=== PATIENT | female | born 1980 | race Caucasian/White ===

== ENCOUNTER → 2018-03-01 | Outpatient (CLI) | payer BC, MEDICAID | LOC: HPND 08:38 | PROVIDERS: ATTEND Obstetrics & Gynecology | DX: O35.2XX0 Maternal care for (suspected) hereditary disease in fetus, not applicable or unspecified (principal); Q87.1 Congenital malformation syndromes predominantly associated with short stature | CPT/HCPCS: 76811 ==

== ENCOUNTER → 2018-03-29 | Outpatient (CLI) | payer BC, MEDICAID | LOC: HPND 09:21 | PROVIDERS: ATTEND Obstetrics & Gynecology | DX: O35.2XX0 Maternal care for (suspected) hereditary disease in fetus, not applicable or unspecified (principal); O34.12 Maternal care for benign tumor of corpus uteri, second trimester; O09.522 Supervision of elderly multigravida, second trimester; O26.892 Other specified pregnancy related conditions, second trimester | CPT/HCPCS: 76816; 76825; 76827; 93325 ==

== ENCOUNTER → 2018-04-27 | Outpatient (CLI) | payer OTHER, MEDICAID | LOC: HPND 12:46 | PROVIDERS: ATTEND Obstetrics & Gynecology | DX: O09.529 Supervision of elderly multigravida, unspecified trimester (principal); O26.899 Other specified pregnancy related conditions, unspecified trimester; O34.12 Maternal care for benign tumor of corpus uteri, second trimester | CPT/HCPCS: 76816 ==

== ENCOUNTER 2018-07-04 16:01 | Observation (INO) ==
--- NOTE | 2018-07-04 16:34 | ED ---
History of Present Illness Primary Care Physician: No Primary Care Physician History of Present Illness: HPI: 37 year old at 36+5 weeks EGA with EDC of 07/27/18 confirmed with 1st trimester ultrasound. Presents to ED with preeclamptic symptoms, was found to have High BP at her OB outpatient appointment with associated ketones and proteins found in her urine. She was sent to the ED for further evaluation. She states that she has had associated headaches over the past couple days with photophobia. She denies any nausea, vomiting, vision changes, dizziness, or leg swelling. She states that her chronic lymphedema has gotten better over the past couple of days. She confirms contractions every 4 minutes since this morning. Denies any SROM of clear fluid. Denies any vaginal bleeding. Patient has felt movements. care: Seen by Dr. Vital Patient has had an uncomplicated course. Scheduled for on the . No UTIs. Patient is compliant. 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 3 uterine fibroids. PMH: Lymphedema, AMA, Mitral Valve Prolapse. FHx: Denies any defects, CF, twins. Allergies: NKDA Meds: vitamins. Tylenol Social history: No tobacco, alcohol or drug abuse, , no domestic violence. ROS: Denies any CP, SOB, Ab Pain, Problems with Urination or Defecation. Review of Systems All other systems reviewed negative except as stated in HPI PMFSH - Travel History Recent Travel in the [facility] Within the Last 8 Weeks: No Recent Travel Out of the Country Within the Last 8 Weeks: No Medications and Allergies Allergies Allergy/AdvReac Type Severity Reaction Status Date / Time No Known Allergies Allergy Unverified 07/04/18 16:25 Active Medications: Active Medications Sodium Chloride (Ns Flush) 2 ml IV.FLUSH BID HOMAR Sodium Chloride (Ns Flush) 2 ml IV.FLUSH PRN PRN PRN Reason: FLUSH AFTER USING IV ACCESS Exam Vital signs: Intake & Output 07/03/18 07/04/18 07/04/18 18:59 06:59 18:59 Weight 65.317 kg Narrative: GENERAL: Well-nourished, well-developed patient. SKIN: Warm and dry. HEAD: Normocephalic and atraumatic. EYES: No scleral icterus. No injection or drainage. ENT: No nasal drainage noted. Mucous membranes pink. Airway patent. NECK: Supple, trachea midline. No JVD. CARDIOVASCULAR: Regular rate and rhythm, Loud systolic click heard over the left sternal border and the apex. RESPIRATORY: Breath sounds equal bilaterally. No accessory muscle use. ABDOMEN/GI: Abdomen soft, non-tender, bowel sounds present, no rebound, no guarding Gravid to 36 weeks size FHT's: Category: 1 Baseline: 130 bpm Reactive: + Variability: moderate Decels: no EXTREMITIES: Lymphedema. Wrapped with sandy bandages b/l. NEUROLOGICAL: Awake and alert. Normal speech. Results - Labs CBC & Chem 7: 07/04/18 17:00 07/04/18 17:00 Assessment and Plan - Diagnosis (1) Elevated blood pressure affecting in third trimester, antepartum Code(s): O16.3 - Unspecified maternal hypertension, third trimester Status: Acute Plan: 36 F with scheduled on Jul 21 presents to ED with elevated BPs , ketones and protein in urine and associated headache. -Repeat BPs: 143/84, 153/86 -Monitor BPs every 20 minutes -Urine Analysis ordered. -Tylenol for headache -IV fluids, Keep Patient NPO -EFM/Hartman -CBC/CMP ordered. The exam, history, and the medical decision-making described in the above note were completed with the assistance of the resident physician. I reviewed and agree with the findings presented. I attest that I had a [id number] encounter with the patient on the same day, and personally performed and documented my assessment and findings in the medical record. Blood pressure readings have remained mild range during triage observation. CBC/ CMP are wnl. In light of the patient's new onset headache I will plan to admit for observation. (2) Head ache Code(s): R51 - Headache Status: Acute Plan: - With associated photophobia - Tylenol added for pain. - Continue to monitor for blurry vision, dizziness. (3) Urine ketones Code(s): R82.4 - Acetonuria Status: Acute Plan: Urine Analysis Ordered (4) AMA (advanced maternal age) primigravida 35+ Code(s): O09.519 - Supervision of elderly primigravida, unspecified trimester Status: Acute Discharge Plan - Physicians Team Primary Care Provider: Primary Care Physici,No Attending Provider: Sammy Vital - Rxs /Orders / Referrals /Forms Referrals: Primary Care Joann Mccracken [Primary Care Provider] - See Instructions - Discharge Instructions
[2018-07-04] MEDS ORDERED: Acetaminophen 325 MG Tablet PO ONE (17:24)
[2018-07-04] MEDS ORDERED: Sod Chloride 0.9% Inj 1,000 ML IV.CONT SCH (17:30)
[2018-07-04 17:32] LABS: Hematocrit 34.4 % (35.0-46.0); Hemoglobin 11.7 gm/dL (11.6-15.3); Mean Corpuscular HGB Conc 34.2 % (32.0-36.0); Mean Corpuscular Hemoglobin 26.6 pg (27.0-34.0); Mean Corpuscular Volume 77.9 fL (80.0-100.0); Mean Platelet Volume 10.2 fL (7.0-11.0); Platelet Count 197 th/mm3 (150-450); Red Blood Count 4.41 mil/mm3 (4.00-5.30); Red Cell Distribution Width 14.4 % (11.6-17.2); White Blood Count 9.5 th/mm3 (4.0-11.0)
[2018-07-04 18:01] LABS: Albumin 2.5 g/dL (3.4-5.0); Anion Gap 10 meq/L (5-15); Aspartate Aminotransferase 16 U/L (15-37); Blood Urea Nitrogen 18 mg/dL (7-18); Calcium 8.6 mg/dL (8.5-10.1); Carbon Dioxide 21.8 meq/L (21.0-32.0); Chloride 107 meq/L (98-107); Glomerular Filtration Rate 69 mL/min (>89); Glucose,Random 79 mg/dL (74-106); Potassium 4.2 meq/L (3.5-5.1); Sodium 139 meq/L (136-145)
[2018-07-04 18:02] LABS: Alanine Aminotransferase 15 U/L (10-53)
[2018-07-04 18:04] LABS: Alkaline Phosphatase 110 U/L (45-117); Total Protein 6.7 g/dL (6.4-8.2)
[2018-07-04 18:22] LABS: Bacteria,Urine Many /hpf; Bilirubin,Urine Negative (Negative); Clarity,Urine Cloudy (Clear); Color,Urine Yellow (Yellw/Straw); Glucose,Urine (UA) Negative (Negative); Hyaline Casts,Urine 2 /lpf (0-3); Leukocyte Esterase,Urine Trace (Negative); Mucus,Urine Few /lpf (Occasional); Nitrite,Urine Negative (Negative); Specific Gravity,Urine 1.026 (1.002-1.035); Squamous Epithelial Cell,Urine 4 /hpf (0-5)
[2018-07-04] MEDS ORDERED: Oxytocin 30 Units/500ml Premix 30 UNITS/500 ML BAG IV.SIG ONE (20:25)
[2018-07-04] MEDS ORDERED: Naloxone Inj 0.4 MG/ML Vial IV.PUSH PRN (20:25)
[2018-07-04] MEDS ORDERED: fentaNYL Citrate Inj 100 MCG/2 ML Ampul IV.PUSH PRN ×2 (20:25)
[2018-07-04] MEDS ORDERED: Sodium Chlor 0.9% Inj 500 ML IV.SIG PRN (20:25)
[2018-07-04] MEDS ORDERED: Sod Chloride 0.9% Inj 1,000 ML IV.CONT PRN (20:25)
[2018-07-04] MEDS ORDERED: Citric Acid/Sodium Citrate Liq 30 ML UDC PO SCH (20:30)
[2018-07-04] MEDS ORDERED: Acetaminophen 325 MG Tablet PO PRN (20:54)
[2018-07-04] MEDS ORDERED: Famotidine 20 MG Tablet PO SCH (21:00)
[2018-07-05 00:14] LABS: Amphetamine Urine With Conf Neg (Neg); Benzodiazepine Urine With Conf Neg (Neg)
--- NOTE | 2018-07-05 09:24 | P.PN ---
Subjective Interval history: Doing well, no agrawal, scotoma or RUQ pain. Feeling well but did not sleep Ready to have baby wore the PCDs last night the lymphedema is getting worse. Physical Exam Vital signs: Vital Signs 07/04/18 16:31 07/04/18 17:45 07/04/18 18:15 Temperature 98.5 F Pulse Rate 90 78 84 Respiratory Rate 18 Blood Pressure 143/84 H 140/80 143/82 H 07/04/18 18:46 07/04/18 19:00 07/04/18 20:00 Temperature Pulse Rate 78 76 73 Respiratory Rate Blood Pressure 139/74 139/80 103/88 07/04/18 20:15 07/04/18 21:03 07/04/18 22:12 Temperature 98.0 F Pulse Rate 100 H 75 Respiratory Rate 15 15 14 Blood Pressure 117/75 123/71 07/04/18 23:00 07/05/18 00:04 07/05/18 04:25 Temperature 97.7 F 97.6 F Pulse Rate 73 78 67 Respiratory Rate 14 14 Blood Pressure 117/66 135/75 122/69 07/05/18 08:01 Temperature 97.8 F Pulse Rate 71 Respiratory Rate 15 Blood Pressure 127/79 Intake & Output 07/04/18 07/05/18 07/05/18 18:59 06:59 18:59 Weight 65.317 kg - Routine HEENT Exam Head: Present: normocephalic, atraumatic - Routine Neck Exam Present: supple - Routine Respiratory Exam Present: CTA bilaterally - Routine Cardiovascular Exam Present: RRR Results - Labs CBC & Chem 7: 07/04/18 17:00 07/04/18 17:00 Laboratory Results - last 24 hr 07/04/18 07/04/18 07/04/18 17:00 17:00 17:00 WBC 9.5 RBC 4.41 Hgb 11.7 Hct 34.4 L MCV 77.9 L MCH 26.6 L MCHC 34.2 RDW 14.4 Plt Count 197 MPV 10.2 Sodium 139 Potassium 4.2 Chloride 107 Carbon Dioxide 21.8 Anion Gap 10 BUN 18 Creatinine 0.91 Estimated GFR 69 L Random Glucose 79 Calcium 8.6 Total Bilirubin 0.2 AST 16 ALT 15 Alkaline Phosphatase 110 Total Protein 6.7 Albumin 2.5 L Urine Color Yellow Urine Clarity Cloudy H Urine pH 5.0 Ur Specific [place] 1.026 Urine Protein 100 H Urine Glucose (UA) Negative Urine Ketones Negative Urine Occult Blood Negative Urine Nitrate Negative Urine Bilirubin Negative Urine Urobilinogen 2.0 H Ur Leukocyte Esterase Trace H Urine RBC 2 Urine WBC 10 H Ur Squamous Epith Cells 4 Urine Bacteria Many H Hyaline Casts 2 Urine Mucus Few H Micro UA Comment Culture indicated Ur Microscopic Review Not Reportable Urine Culture Comments Culture indicated Urine Opiates Screen Ur Barbiturates Screen Ur Amphetamine Screen U Benzodiazepines Scrn Urine Cocaine Screen U Cannabinoids Screen Blood Type 07/04/18 07/05/18 17:00 08:20 WBC RBC Hgb Hct MCV MCH MCHC RDW Plt Count MPV Sodium Potassium Chloride Carbon Dioxide Anion Gap BUN Creatinine Estimated GFR Random Glucose Calcium Total Bilirubin AST ALT Alkaline Phosphatase Total Protein Albumin Urine Color Urine Clarity Urine pH Ur Specific [place] Urine Protein Urine Glucose (UA) Urine Ketones Urine Occult Blood Urine Nitrate Urine Bilirubin Urine Urobilinogen Ur Leukocyte Esterase Urine RBC Urine WBC Ur Squamous Epith Cells Urine Bacteria Hyaline Casts Urine Mucus Micro UA Comment Ur Microscopic Review Urine Culture Comments Urine Opiates Screen Neg Ur Barbiturates Screen Neg Ur Amphetamine Screen Neg U Benzodiazepines Scrn Neg Urine Cocaine Screen Neg U Cannabinoids Screen Neg Blood Type O Negative Assessment and Plan - Assessment (1) Pre-eclampsia affecting childbirth Code(s): O14.94 - Unspecified pre-eclampsia, complicating childbirth Status: Acute - Plan IUP at 36/6 Pre eclampsia will proceed with a primary c/s tomorrow at 37 weeks Lymphedema will try to restrict the fluids at this time.
== END 2018-07-05 10:31 | disposition home or self-care (01) ==
LOC: H2E 16:01 → HOBED 16:01 → H2E 19:14
PROVIDERS: ADMIT Obstetrics & Gynecology; ATTEND Obstetrics & Gynecology
DX: O09.513 Supervision of elderly primigravida, third trimester; O34.13 Maternal care for benign tumor of corpus uteri, third trimester; O26.893 Other specified pregnancy related conditions, third trimester; D25.9 Leiomyoma of uterus, unspecified; O99.413 Diseases of the circulatory system complicating pregnancy, third trimester; O14.93 Unspecified pre-eclampsia, third trimester; Z3A.36 36 weeks gestation of pregnancy; I89.0 Lymphedema, not elsewhere classified; R82.4 Acetonuria

== ENCOUNTER 2018-07-06 09:32 | Inpatient (IN) ==
--- NOTE | 2018-07-06 10:50 | P.HPOB ---
History of Present Illness Primary Care Physician: MD Dr. Amanuel Arriola, VAT PACKER History of Present Illness: A 37-year-old at 36 weeks 6 days, dated by first trimester ultrasound, presents for scheduled . Patient presented to the ED yesterday with high blood pressure, headache, blurry vision, and was found to have proteinuria. 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 This includes certification that hospital inpatient services are reasonable and necessary and in the case of services not specified as inpatient-only under 42 CFR 419.22(n), that they are appropriately provided as inpatient services in accordance to with the 2-midnight benchmark under 43 CFR 412.3(e) Estimated Total Length of Stay (Days): 2 Plans for Post Hospital Care: Home Review of Systems All other systems reviewed negative except as stated in HPI PMFSH - History History Provided By: Patient, Family Member - Medical / Surgical Hx Neg / Unobtainable Surgical History: No Previous Surgery - Social History I have reviewed the patient's Social History: Yes - Tobacco History Second Hand Smoke Exposure: No Tobacco Use In Past 30 Days: No Smoking Status: Never smoker - Alcohol History How Often Do You Have a Drink Containing Alcohol: Never - Substance Use History Substance History: No History of Abuse - Travel History History of Recent Travel: No Recent Travel in the [place] Within the Last 8 Weeks: No Recent Travel Out of the Country Within the Last 8 Weeks: No Medications and Allergies Active Medications: Active Medications Citric Acid/Sodium Citrate (Sodium Citrate/Citric Acid Liq) 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 Stop: 07/10/18 10:59 Cefazolin Sodium 2,000 mg/ (Sodium Chloride) 100 mls @ 200 mls/hr IV.SIG BUILDING MAINTENANCE CUSTODIAN HOMAR Stop: 07/10/18 10:59 Lactated Ringer's (Lr 1000 Ml Inj) 1,000 mls @ 2,000 mls/hr IV.SIG .Q30M ONE Stop: 07/06/18 11:15 Lactated Ringer's (Lr 1000 Ml Inj) 1,000 mls @ 150 mls/hr IV.CONT .Q6H40M HOMAR Allergies Allergy/AdvReac Type Severity Reaction Status Date / Time No Known Allergies Allergy Verified 07/06/18 10:20 Home Medications Medication Instructions Recorded Confirmed Type [id number] fumarate-FA 1 tab PO DAILY 07/04/18 07/06/18 History [] Exam Vital signs: Vital Signs 07/06/18 10:07 Temperature 98.0 F Pulse Rate 88 Blood Pressure 134/91 H Intake & Output 07/05/18 07/06/18 07/06/18 18:59 06:59 18:59 Weight 65.317 kg Other: Weight On Admission 65.317 kg Narrative: GENERAL: Well-nourished, well-developed patient. SKIN: Warm and dry. HEAD: Normocephalic and atraumatic. EYES: No scleral icterus. No injection or drainage. ENT: No nasal drainage noted. Mucous membranes pink. Airway patent. NECK: Supple, trachea midline. No JVD. CARDIOVASCULAR: Regular rate and rhythm without murmurs, gallops, or rubs. RESPIRATORY: Breath sounds equal bilaterally. No accessory muscle use. ABDOMEN/GI: Abdomen soft, non-tender, bowel sounds present, no rebound, no guarding Gravid to 37 weeks size Fundal Height: 37 GENITOURINARY: External Genitalia: intact and normal in appearance FHT's: Category 1 tracing, no decelerations irregular uterine contractibility, no regular contractions EXTREMITIES: severe 3+ non-pitting edema of right leg, severe 2+ non-pitting edema of left leg, weeping of both legs present BACK: Nontender without obvious deformity. No CVA tenderness. NEUROLOGICAL: Awake and alert. Motor and sensory grossly within normal limits. Five out of 5 muscle strength in all muscle groups. Normal speech. Results - Labs CBC & Chem 7: 07/06/18 10:28 Caprini VTE Risk Assessment Caprini VTE Risk Assessment: No/Low Risk (score <= 1) Caprini Risk Assessment Model: Point Value = 1 Point Value = 2 Point Value = 3 Point Value = 5 Age 41-60 Minor surgery BMI > 25 kg/m2 Swollen legs Varicose veins or History of unexplained or recurrent spontaneous Oral contraceptives or hormone replacement Sepsis (< 1 month) Serious lung disease, including pneumonia (< 1 month) Abnormal pulmonary function Acute myocardial infarction Congestive heart failure (< 1 month) History of inflammatory bowel disease Medical patient at bed rest Age 61-74 Arthroscopic surgery Major open surgery (> 45 min) Laparoscopic surgery (> 45 min) Malignancy Confined to bed (> 72 hours) Immobilizing plaster cast Central venous access Age >= 75 History of VTE Family history of VTE Factor V Leiden Prothrombin [id number] Lupus anticoagulant Anticardiolipin antibodies Elevated serum homocysteine Heparin-induced thrombocytopenia Other congenital or acquired thrombophilia Stroke (< 1 month) Elective arthroplasty Hip, pelvis, or leg fracture Acute spinal cord injury (< 1 month) Prophylaxis Regimen: Total Risk Factor Score Risk Level Prophylaxis Regimen 0-1 Low Early ambulation 2 Moderate Order ONE of the following: *Sequential Compression Device (SCD) *Heparin 5000 units SQ BID 3-4 Higher Order ONE of the following medications: *Heparin 5000 units SQ TID *Enoxaparin/Lovenox 40 mg SQ daily (WT < 150 kg, CrCl > 30 mL/min) *Enoxaparin/Lovenox 30 mg SQ daily (WT < 150 kg, CrCl > 10-29 mL/min) *Enoxaparin/Lovenox 30 mg SQ BID (WT < 150 kg, CrCl > 30 mL/min) AND/OR *Sequential Compression Device (SCD) 5 or more Highest Order ONE of the following medications: *Heparin 5000 units SQ TID (Preferred with Epidurals) *Enoxaparin/Lovenox 40 mg SQ daily (WT < 150 kg, CrCl > 30 mL/min) *Enoxaparin/Lovenox 30 mg SQ daily (WT < 150 kg, CrCl > 10-29 mL/min) *Enoxaparin/Lovenox 30 mg SQ BID (WT < 150 kg, CrCl > 30 mL/min) AND *Sequential Compression Device (SCD) Assessment and Plan - Plan A 37-year-old at 36 weeks 6 days, dated by first trimester ultrasound, presents for scheduled . Scheduled c/s at 36.6wks for pre-eclampsia, AGA, lymphedema. - Admit to L&D - Pre-op C/S orders in - MD Aware - NPO - H&H: 11.8/36.1 - f/u CMP, UA, UDS - Ancef 2g Pre-eclampsia - BP 134-153/ 79-91 - f/u UA - Cont to monitor BPs and control PRN Lymphedema - Cont to monitor I&Os - Caution with IVF Case discussed w/ , VAT PACKER
[2018-07-06] MEDS ORDERED: ceFAZolin Inj 2,000 MG in Sodium Chlor 0.9% Inj 80 ML IV.SIG SCH (11:00)
[2018-07-06] MEDS ORDERED: Citric Acid/Sodium Citrate Liq 30 ML UDC PO SCH (11:00)
[2018-07-06 11:04] LABS: Baso # (Auto) 0.1 th/mm3 (0.0-0.2); Baso % (Auto) 1.6 % (0.0-2.0); Eos # (Auto) 0.1 th/mm3 (0.0-0.4); Eos % (Auto) 0.9 % (0.0-4.0); Hematocrit 36.1 % (35.0-46.0); Hemoglobin 11.8 gm/dL (11.6-15.3); Lymph # (Auto) 1.8 th/mm3 (1.0-4.8); Lymph % (Auto) 20.6 % (9.0-44.0); Mean Corpuscular HGB Conc 32.6 % (32.0-36.0); Mean Corpuscular Hemoglobin 26.1 pg (27.0-34.0); Mean Platelet Volume 10.5 fL (7.0-11.0); Mono # (Auto) 0.8 th/mm3 (0.0-0.9); Mono % (Auto) 9.4 % (0.0-8.0); Neut # (Auto) 5.9 th/mm3 (1.8-7.7); Neut % (Auto) 67.5 % (16.0-70.0); Platelet Count 212 th/mm3 (150-450); Red Blood Count 4.51 mil/mm3 (4.00-5.30); Red Cell Distribution Width 14.2 % (11.6-17.2); White Blood Count 8.7 th/mm3 (4.0-11.0)
[2018-07-06] MEDS ORDERED: Citric Acid/Sodium Citrate Liq 30 ML UDC ONE ×3 (11:25→12:18)
[2018-07-06] MEDS ORDERED: Morphine Sulfate PF Inj 5 MG/10 ML Ampul ONE (11:31)
[2018-07-06 11:41] LABS: Alanine Aminotransferase 17 U/L (10-53); Albumin 2.7 g/dL (3.4-5.0); Alkaline Phosphatase 114 U/L (45-117); Anion Gap 12 meq/L (5-15); Aspartate Aminotransferase 35 U/L (15-37); Blood Urea Nitrogen 18 mg/dL (7-18); Calcium 8.6 mg/dL (8.5-10.1); Carbon Dioxide 20.1 meq/L (21.0-32.0); Chloride 105 meq/L (98-107); Glomerular Filtration Rate 61 mL/min (>89); Glucose,Random 64 mg/dL (74-106); Sodium 137 meq/L (136-145); Total Protein 7.1 g/dL (6.4-8.2)
[2018-07-06 11:43] LABS: Potassium 5.1 meq/L (3.5-5.1)
[2018-07-06 11:48] LABS: Amphetamine Screen,Urine Neg (Neg); Barbiturate Screen,Urine Neg (Neg); Cannabinoid Screen,Urine Neg (Neg); Cocaine Screen,Urine Neg (Neg)
[2018-07-06 11:50] LABS: Bacteria,Urine Occasional /hpf; Bilirubin,Urine Negative (Negative); Clarity,Urine Cloudy (Clear); Color,Urine Amber (Yellw/Straw); Glucose,Urine (UA) Negative (Negative); Leukocyte Esterase,Urine Negative (Negative); Mucus,Urine Few /lpf (Occasional); Nitrite,Urine Negative (Negative); Specific Gravity,Urine 1.029 (1.002-1.035); Squamous Epithelial Cell,Urine 3 /hpf (0-5); Transitional Epi Cells,Urine <1 /hpf
[2018-07-06 11:57] LABS: Opiate Screen,Urine Neg (Neg)
[2018-07-06] MEDS ORDERED: fentaNYL Citrate Inj 250 MCG/5 ML Ampul ONE (12:54)
[2018-07-06] MEDS ORDERED: fentaNYL Citrate Inj 100 MCG/2 ML Ampul ONE (13:16)
[2018-07-06] MEDS ORDERED: Ketorolac Inj 30 MG/ML (IVP) Vial IV.PUSH ONE (13:30)
[2018-07-06] MEDS ORDERED: Oxytocin 30 Units/500ml Premix 30 UNITS/500 ML BAG IV.SIG ONE (13:49)
[2018-07-06] MEDS ORDERED: Oxytocin 30 Units/500ml Premix 30 UNITS/500 ML BAG ONE (15:26)
[2018-07-06] MEDS ORDERED: Naloxone Inj 0.4 MG/ML Vial IV.PUSH PRN (15:40)
--- NOTE | 2018-07-06 15:55 | P.OBDELI ---
Procedure Note Performed by: Madiha Shane MD, R2 Dr. Vital Procedure: Primary Low Transverse Section Indication for Delivery: Maternal medical problems, Other (pre-eclamspia, AGA, acute on chronic lymphedema) Informed Consent Obtained: For anesthesia, For procedure Confirmed Correct: Patient, Procedure, Site, Time-out taken Anesthesia: Spinal Medication Prior to Procedure: As documented in eMAR Monitoring During Procedure: Blood pressure monitoring, assortment planner, Pulse oximetry Urinary Catheter: Inserted using sterile technique Sterile Preparation: With 2% chlorexidine (Hibiclens) Position: Supine with wedge to left side - Operative Features Skin Incision: Pfannenstiel Uterine Incision: Low transverse w/knife / blunt ext Membranes Ruptured: Artificially, Appearance of fluid (clear) Presentation: Occiput anterior Status of Infant: Viable, Cord blood, Umbilical cord, Nursery present Placenta Delivered: Intact Estimated blood loss (mL): 600 Procedure Tolerated: Well Maternal Condition: Stable Baby Complications: Other (vacuum-assisted delivery) Baby Condition: Stable - Infant Infant: Male ( 9/9, weight 5lb7oz)
[2018-07-06] MEDS ORDERED: Oxytocin 30 Units/500ml Premix 30 UNITS/500 ML BAG IV.SIG PRN (18:49)
[2018-07-07 07:42] LABS: Baso % (Auto) 0.2 % (0.0-2.0); Hematocrit 26.3 % (35.0-46.0); Hemoglobin 8.5 gm/dL (11.6-15.3); Lymph # (Auto) 1.5 th/mm3 (1.0-4.8); Lymph % (Auto) 11.3 % (9.0-44.0); Mean Corpuscular HGB Conc 32.5 % (32.0-36.0); Mean Corpuscular Hemoglobin 25.9 pg (27.0-34.0); Mean Corpuscular Volume 79.9 fL (80.0-100.0); Mean Platelet Volume 10.1 fL (7.0-11.0); Mono # (Auto) 1.2 th/mm3 (0.0-0.9); Neut # (Auto) 10.6 th/mm3 (1.8-7.7); Neut % (Auto) 79.5 % (16.0-70.0); Platelet Count 177 th/mm3 (150-450); Red Blood Count 3.29 mil/mm3 (4.00-5.30); Red Cell Distribution Width 14.1 % (11.6-17.2); White Blood Count 13.4 th/mm3 (4.0-11.0)
[2018-07-07] MEDS: Senna/Docusate Sodium 8.6/50 MG Tablet PO PRN (09:02)
--- NOTE | 2018-07-07 11:37 | P.PNOB ---
Subjective Post op day: 1 Objective Vital Signs/I&O: Vital Signs 07/06/18 11:30 07/06/18 14:00 07/06/18 14:15 Temperature Pulse Rate 94 H 91 H Respiratory Rate 18 17 18 Blood Pressure 124/83 07/06/18 14:29 07/06/18 14:30 07/06/18 14:45 Temperature 97.4 F L Pulse Rate 77 74 Respiratory Rate 20 18 Blood Pressure 134/65 133/79 07/06/18 14:59 07/06/18 15:00 07/06/18 15:14 Temperature Pulse Rate 68 78 Respiratory Rate 19 18 Blood Pressure 127/82 07/06/18 15:15 07/06/18 15:51 07/06/18 16:55 Temperature 97.5 F L 97.5 F L 97.7 F Pulse Rate 66 Respiratory Rate 16 16 Blood Pressure 124/82 07/06/18 18:55 07/06/18 20:00 07/06/18 21:34 Temperature 97.5 F L 98.1 F Pulse Rate 69 67 Respiratory Rate 16 18 18 Blood Pressure 144/85 H 140/77 07/06/18 23:47 07/07/18 01:25 07/07/18 03:55 Temperature 98.1 F 98.0 F Pulse Rate 72 86 Respiratory Rate 18 18 18 Blood Pressure 135/87 108/69 07/07/18 05:00 07/07/18 07:55 Temperature 97.6 F Pulse Rate 91 H Respiratory Rate 18 18 Blood Pressure 107/61 Intake & Output 07/06/18 07/07/18 07/07/18 18:59 06:59 18:59 Intake Total 100 / 100 Balance 100 / 100 Weight 65.317 kg Intake: IV 100 / 100 Ancef Inj 1,000 MG In NS Inj 100 / 100 100 ML @ 200 mls/hr IV.SIG Q8H [facility] Rx#:[id number] Other: Weight On Admission 65.317 kg Result Diagrams: 07/07/18 06:57 07/06/18 10:28 Objective Remarks: GENERAL: Well-nourished, well-developed patient. CARDIOVASCULAR: Regular rate and rhythm without murmurs, gallops, or rubs. RESPIRATORY: Breath sounds equal bilaterally. No accessory muscle use. ABDOMEN/GI: Abdomen soft, non-tender, bowel sounds present. Incision: dressing, Clean, dry and intact. Fundus: Firm, non-tender at umbilicus. GENITOURINARY: Light to moderate bleeding. EXTREMITIES: No cyanosis, non-tender, without signs of DVT, +3 pitting edema to bilateral lower extremities Medications and IVs: Active Medications Citric Acid/Sodium Citrate (Sodium Citrate/Citric Acid Liq) 30 ml PO AUTOMOBILE SERVICE STATION MECHANIC [facility] Stop: 07/10/18 10:59 Diphenhydramine HCl (Benadryl Inj) 25 mg IV.PUSH Q6H PRN PRN Reason: MILD TO MODERATE ITCHING Stop: 07/07/18 15:39 Diphenhydramine HCl (Benadryl) 50 mg PO Q6H PRN PRN Reason: MILD TO MODERATE ITCHING Stop: 07/07/18 15:39 Diphtheria/Pertussis/Tetanus Vacc (Boostrix Vaccine Inj) 0.5 ml IM .ONCE ONE Stop: 07/07/18 16:01 Cefazolin Sodium 2,000 mg/ (Sodium Chloride) 100 mls @ 200 mls/hr IV.SIG AUTOMOBILE SERVICE STATION MECHANIC [facility] Stop: 07/10/18 10:59 Last Admin: 07/06/18 12:30 Dose: 200 mls/hr Lactated Ringer's (Lr 1000 Ml Inj) 1,000 mls @ 150 mls/hr IV.CONT .Q6H40M [facility] Last Admin: 07/07/18 10:22 Dose: Not Given Lactated Ringer's (Lr 1000 Ml Inj) 1,000 mls @ 100 mls/hr IV.CONT .Q10H [facility] Stop: 07/07/18 14:48 Last Admin: 07/07/18 10:22 Dose: Not Given Oxytocin (Pitocin 30 Units/Ns 500 Ml Premix) 30 units in 500 mls @ 100 mls/hr IV.SIG UNSCH PRN PRN Reason: Heavy bleeding Ibuprofen (Motrin) 800 mg PO Q8H PRN PRN Reason: cramping Last Admin: 07/07/18 09:02 Dose: 800 mg Ketorolac Tromethamine (Toradol Inj) 30 mg IM Q6H PRN PRN Reason: SEE LABEL COMMENTS Measles/Mumps/Rubella Vaccine Live (M-M-R Ii Vaccine Inj) 0.5 ml SQ .ONCE ONE Stop: 07/07/18 16:01 Miscellaneous Information ([facility] Nursing Information) 1 each OTHER UNSCH PRN PRN Reason: SEE LABEL COMMENTS Stop: 07/07/18 15:39 Miscellaneous Information ([facility] Nursing Information) 1 each OTHER UNSCH PRN PRN Reason: SEE LABEL COMMENTS Stop: 07/07/18 15:39 Naloxone HCl (Narcan Inj) 0.4 mg IV.PUSH UNSCH PRN PRN Reason: SEE LABEL COMMENTS Stop: 07/07/18 15:39 Oxycodone/Acetaminophen (Percocet 5/325 Mg) 1 tab PO Q4H PRN PRN Reason: PAIN SCALE 3 TO 5 Last Admin: 07/07/18 05:02 Dose: 1 tab Oxycodone/Acetaminophen (Percocet 5/325 Mg) 2 tab PO Q4H PRN PRN Reason: PAIN SCALE 6 TO 10 Last Admin: 07/07/18 09:02 Dose: 2 tab Senna/Docusate Sodium (Vangie-Colace) 2 tab PO Q12H PRN PRN Reason: CONSTIPATION Last Admin: 07/07/18 09:02 Dose: 2 tab Sodium Chloride (Ns Flush) 2 ml IV.FLUSH BID HOMAR Last Admin: 07/07/18 10:22 Dose: Not Given Sodium Chloride (Ns Flush) 2 ml IV.FLUSH PRN PRN PRN Reason: FLUSH AFTER USING IV ACCESS Assessment and Plan - Diagnosis (1) S/P primary low transverse Code(s): Z98.891 - History of uterine scar from previous surgery Status: Acute Plan: routine post op care (2) Lymph edema Code(s): I89.0 - Lymphedema, not elsewhere classified Status: Acute Plan: sequential pneumatic pump ambulation pt as compression stockings (3) Anemia Code(s): D64.9 - Anemia, unspecified Status: Acute Plan: monitor as outpatient and treat with oral iron - Plan A 37-year-old at 36 weeks 6/7 POD #1 primary and tubal Pt doing well pain well managed with oral pain medication pt to ambulate and shower today routine post op care Pre-eclampsia BP WNL LFT normal - Cont to monitor BPs and control PRN Lymphedema encourage use of sequential pneumatic stockings pt has her own compression wraps ambulation Anemia will treat with iron PP Discharge Planning: consider dc in 1-2 days
[2018-07-07] MEDS ORDERED: Diphtheria/Tetanus/Pertussis Vaccine Inj 0.5 ML Syringe IM ONE (16:00)
[2018-07-07] MEDS ORDERED: Measles/Mumps/Rubella Vaccine Inj 0.5 ML Vial SQ ONE (16:00)
--- NOTE | 2018-07-08 06:57 | P.PNOB ---
Subjective Post op day: 2 Interval history: Doing well overall, pain well controlled, minimal ambulation, feeling vaginal bleeding less than menses, she is feeling tired, denies any cough congestion or chest pain. He has not eaten much, decreased appetite, tolerating crackers and fluids without emesis. Positive flatus. Objective Vital Signs/I&O: Vital Signs 07/07/18 07:55 07/07/18 11:28 07/07/18 20:00 Temperature 97.6 F 97.6 F 98.1 F Pulse Rate 91 H 89 93 H Respiratory Rate 18 20 18 Blood Pressure 107/61 141/75 H 127/66 Intake & Output 07/07/18 07/07/18 07/08/18 06:59 18:59 06:59 Intake Total 100 / 100 Balance 100 / 100 Intake: IV 100 / 100 Ancef Inj 1,000 MG In NS Inj 100 / 100 100 ML @ 200 mls/hr IV.SIG Q8H [facility] Rx#:[id number] Result Diagrams: 07/07/18 06:57 07/06/18 10:28 Objective Remarks: GENERAL: Well-nourished, well-developed patient. CARDIOVASCULAR: Regular rate and rhythm without murmurs, gallops, or rubs. RESPIRATORY: Breath sounds equal bilaterally. No accessory muscle use. ABDOMEN/GI: Abdomen soft, non-tender, bowel sounds present. Incision: Clean, dry and intact. Fundus: Firm, non-tender at umbilicus. GENITOURINARY: Light to moderate bleeding. EXTREMITIES: No cyanosis or edema, non-tender, without signs of DVT. Medications and IVs: Active Medications Citric Acid/Sodium Citrate (Sodium Citrate/Citric Acid Liq) 30 ml PO [employer] [facility] Stop: 07/10/18 10:59 Cefazolin Sodium 2,000 mg/ (Sodium Chloride) 100 mls @ 200 mls/hr IV.SIG [employer] [facility] Stop: 07/10/18 10:59 Last Admin: 07/06/18 12:30 Dose: 200 mls/hr Lactated Ringer's (Lr 1000 Ml Inj) 1,000 mls @ 150 mls/hr IV.CONT .Q6H40M [facility] Last Admin: 07/07/18 10:22 Dose: Not Given Oxytocin (Pitocin 30 Units/Ns 500 Ml Premix) 30 units in 500 mls @ 100 mls/hr IV.SIG UNSCH PRN PRN Reason: Heavy bleeding Ibuprofen (Motrin) 800 mg PO Q8H PRN PRN Reason: cramping Last Admin: 07/08/18 02:08 Dose: 800 mg Ketorolac Tromethamine (Toradol Inj) 30 mg IM Q6H PRN PRN Reason: SEE LABEL COMMENTS Oxycodone/Acetaminophen (Percocet 5/325 Mg) 1 tab PO Q4H PRN PRN Reason: PAIN SCALE 3 TO 5 Last Admin: 07/07/18 05:02 Dose: 1 tab Oxycodone/Acetaminophen (Percocet 5/325 Mg) 2 tab PO Q4H PRN PRN Reason: PAIN SCALE 6 TO 10 Last Admin: 07/08/18 02:07 Dose: 2 tab Senna/Docusate Sodium (Vangie-Colace) 2 tab PO Q12H PRN PRN Reason: CONSTIPATION Last Admin: 07/07/18 09:02 Dose: 2 tab Sodium Chloride (Ns Flush) 2 ml IV.FLUSH BID [facility] Last Admin: 07/08/18 01:30 Dose: Not Given Sodium Chloride (Ns Flush) 2 ml IV.FLUSH PRN PRN PRN Reason: FLUSH AFTER USING IV ACCESS Assessment and Plan - Plan 37-year-old status post scheduled vacuum-assisted primary low transverse at 36 weeks and 6 days. Done per cardiology recommendations to avoid labor due to her heart disease. 1. day #1: afebrile, vital signs stable, output appropriate. Continue routine post operative care, anticipate discharge home tomorrow. - Male , status post circumcision. 2. Preeclampsia without severe features: Blood pressures mostly normotensive, discussed preeclampsia precautions after discharge. Rec her to follow-up in 1 week in the office for blood pressure check. 3. Lymphedema/mitral valve prolapse: Patient states normal echo at the beginning of her , no change in her baseline symptoms. Encouraged ambulation.
--- NOTE | 2018-07-08 07:01 | P.DS ---
Date of admission: 07/06/18 09:32 Primary care physician: Javier Corona MD Brief History from admission: 37-year-old who presented at 36 weeks and 6 days for scheduled , she underwent a primary low transverse section. She met all of her milestones on postoperative day #3 and was discharged home. DS: Medications - Discharge Medications Prescriptions: ibuprofen 800 mg PO Q8H PRN #30 tab PRN Reason: cramping oxycodone-acetaminophen 1 - 2 tab PO Q4H PRN #30 tab PRN Reason: Pain, Severe DS: Summary Hospital Course: see Brief history - Time Spent with Patient Total time spent providing and/or coordinating discharge services: Less than 30 minutes Exam Vital signs: Vital Signs 07/07/18 07:55 07/07/18 11:28 07/07/18 20:00 Temperature 97.6 F 97.6 F 98.1 F Pulse Rate 91 H 89 93 H Respiratory Rate 18 20 18 Blood Pressure 107/61 141/75 H 127/66 Intake & Output 07/07/18 07/07/18 07/08/18 06:59 18:59 06:59 Intake Total 100 / 100 Balance 100 / 100 Intake: IV 100 / 100 Ancef Inj 1,000 MG In NS Inj 100 / 100 100 ML @ 200 mls/hr IV.SIG Q8H [facility] Rx#:[id number] Results Procedures completed during hospitalization: Primary low transverse Labs on day of discharge: Labs from last 24 hours 07/07/18 07/07/18 07:16 06:57 WBC 13.4 H D RBC 3.29 L Hgb 8.5 L D Hct 26.3 L MCV 79.9 L MCH 25.9 L MCHC 32.5 RDW 14.1 Plt Count 177 MPV 10.1 Neut % (Auto) 79.5 H Lymph % (Auto) 11.3 Mitchell % (Auto) 9.0 H Eos % (Auto) 0.0 Baso % (Auto) 0.2 Neut # (Auto) 10.6 H Lymph # (Auto) 1.5 Mitchell # (Auto) 1.2 H Eos # (Auto) 0.0 Baso # (Auto) 0.0 WBC Differential . Differential Comment Auto diff final Blood Type O Negative Ab Screen Tube Method Negative Blood Bank Comment Discharge Plan - Discharge Disposition Patient Disposition: 01 Discharge Home - Discharge Condition Condition: Good - Discharge Order Discharge Orders: Discharge Order (Routine); Ordered 07/09/18 Ordered By: Sheldon Cordoba - Discharge Details Anticipated Discharge Date: 07/09/18 - Physicians Team Primary Care Provider: Javier Corona Attending Provider: Sammy Vital - Rxs /Orders / Referrals /Forms Prescriptions: New ibuprofen 800 mg Tablet 800 mg PO Q8H PRN (Reason: cramping) Qty: 30 RF: 1 oxycodone-acetaminophen 5-325 mg Tablet 1 - 2 tab PO Q4H PRN (Reason: Pain, Severe) Qty: 30 RF: 0 Continue [id number] fumarate-FA [] 28-800 mg-mcg Tablet 1 tab PO DAILY Referrals: Javier Corona MD [Primary Care Provider] - See Instructions - Discharge Instructions Patient Printed Instructions: (DC) - Post Discharge Care Plan Care Plan Goals: Congratulations on your new baby! We want your recovery to be esposito and trouble free. Please Report the Following Symptoms to Your Doctor: -Temperature above 100.5 degrees -Redness of incision or excessive or foul smelling drainage -Unusual pain or calf pain -Increased vaginal bleeding -Painful or difficulty urinating -Feelings of extreme sadness or anxiety Goals to Promote Your Health * To prevent worsening of your condition and complications * To maintain your health at the optimal level Directions to Meet Your Goals Take your medications as prescribed Follow your dietary instruction Follow activity as directed Ensure plenty of rest for recovery Drink fluids for hydration Keep your appointments as scheduled Take your immunizations and boosters as scheduled If your symptoms worsen call your OB Physician, or go to an Urgent Care Center or Emergency Room Smoking is Dangerous to your health. Avoid second hand smoke Call the 24-hour crisis hotline for domestic abuse at
[2018-07-08] MEDS ORDERED: Famotidine 20 MG Tablet PO PRN (09:50)
[2018-07-08] MEDS: Senna/Docusate Sodium 8.6/50 MG Tablet PO PRN (11:27)
[2018-07-08 20:56] VITALS: RESP 18
[2018-07-09 08:47] VITALS: BP 124/78
[2018-07-09 08:48] VITALS: PULSE 89; TEMP 98.3
--- NOTE | 2018-07-09 08:50 | P.PNOB ---
Subjective Post op day: 3 Interval history: Doing well, vaginal bleeding equal to menses slightly increased from yesterday, no passage of large clots, denies any headache, chest pain, shortness of breath , feeling dizzy but mildly so, pain controlled, tolerating diet without nausea or vomiting, voiding spontaneously. Objective Vital Signs/I&O: Vital Signs 07/08/18 19:45 Temperature 98.0 F Pulse Rate 108 H Respiratory Rate 18 Blood Pressure 141/82 H Intake & Output 07/08/18 07/09/18 07/09/18 18:59 06:59 18:59 Intake Total 0 / 0 Balance 0 / 0 Intake: Intake (Blood Product) Amt 0 / 0 Rho(D) Immune Globulin Unit 0 / 0 [id number] Result Diagrams: 07/07/18 06:57 07/06/18 10:28 Objective Remarks: GENERAL: Well-nourished, well-developed patient. CARDIOVASCULAR: Regular rate and rhythm without murmurs, gallops, or rubs. RESPIRATORY: Breath sounds equal bilaterally. No accessory muscle use. ABDOMEN/GI: Abdomen soft, non-tender, bowel sounds present. Incision: Clean, dry and intact. Fundus: Firm, non-tender at umbilicus. GENITOURINARY: Light to moderate bleeding. EXTREMITIES: No cyanosis or edema, non-tender, without signs of DVT. Medications and IVs: Active Medications Citric Acid/Sodium Citrate (Sodium Citrate/Citric Acid Liq) 30 ml PO [employer] [facility] Stop: 07/10/18 10:59 Famotidine (Pepcid) 20 mg PO BID PRN PRN Reason: REFLUX Last Admin: 07/08/18 10:30 Dose: 20 mg Cefazolin Sodium 2,000 mg/ (Sodium Chloride) 100 mls @ 200 mls/hr IV.SIG [employer] [facility] Stop: 07/10/18 10:59 Last Admin: 07/06/18 12:30 Dose: 200 mls/hr Lactated Ringer's (Lr 1000 Ml Inj) 1,000 mls @ 150 mls/hr IV.CONT .Q6H40M [facility] Last Admin: 07/09/18 07:11 Dose: Not Given Oxytocin (Pitocin 30 Units/Ns 500 Ml Premix) 30 units in 500 mls @ 100 mls/hr IV.SIG UNSCH PRN PRN Reason: Heavy bleeding Ibuprofen (Motrin) 800 mg PO Q8H PRN PRN Reason: cramping Last Admin: 07/09/18 06:40 Dose: 800 mg Ketorolac Tromethamine (Toradol Inj) 30 mg IM Q6H PRN PRN Reason: SEE LABEL COMMENTS Oxycodone/Acetaminophen (Percocet 5/325 Mg) 1 tab PO Q4H PRN PRN Reason: PAIN SCALE 3 TO 5 Last Admin: 07/07/18 05:02 Dose: 1 tab Oxycodone/Acetaminophen (Percocet 5/325 Mg) 2 tab PO Q4H PRN PRN Reason: PAIN SCALE 6 TO 10 Last Admin: 07/09/18 06:39 Dose: 2 tab Senna/Docusate Sodium (Vangie-Colace) 2 tab PO Q12H PRN PRN Reason: CONSTIPATION Last Admin: 07/08/18 11:27 Dose: 2 tab Sodium Chloride (Ns Flush) 2 ml IV.FLUSH BID [facility] Last Admin: 07/08/18 22:46 Dose: Not Given Sodium Chloride (Ns Flush) 2 ml IV.FLUSH PRN PRN PRN Reason: FLUSH AFTER USING IV ACCESS Assessment and Plan - Plan 37-year-old status post scheduled vacuum-assisted primary low transverse at 36 weeks and 6 days. Done per cardiology recommendations to avoid labor due to her heart disease. 1. day #3: afebrile, vital signs stable, discussed and postoperative precautions, expectations and follow-up. Patient states she will be seen this week in the office. - Male , status post circumcision. 2. Preeclampsia without severe features: Blood pressures mild range, patient denies any symptoms of severe features. Discussed preeclampsia precautions after discharge. 3. Lymphedema/mitral valve prolapse: Patient states normal echo at the beginning of her , no change in her baseline symptoms. Encouraged ambulation, discussed heart failure symptoms to be mindful of after d/c.
[2018-07-09] MEDS: Senna/Docusate Sodium 8.6/50 MG Tablet PO PRN (11:15)
--- NOTE | 2018-08-02 10:44 | MP ---
cc: Matthew Vital MD DATE OF OPERATION: 07/06/2018 PREOPERATIVE DIAGNOSES: 1. Intrauterine at 37 weeks. 2. Preeclampsia. 3. Severe lymphedema of the lower extremities. POSTOPERATIVE DIAGNOSES: 1. Intrauterine at 37 weeks. 2. Preeclampsia. 3. Severe lymphedema of the lower extremities. PROCEDURE PERFORMED: Primary low transverse section. Bilateral tubal ligation ANESTHESIA: Spinal. SURGEON: Travis Vital MD FINDINGS: Normal male , weight 5 pounds 7 ounces, Apgars 9 and 9. Normal tubes, normal ovaries, normal anterior and posterior cul-de-sacs, normal uterus. COMPLICATIONS: None. COUNTS: Correct. ESTIMATED BLOOD LOSS: 500 mL. FLUIDS: Crystalloids. CONDITION: The patient tolerated the procedure well, and went to the recovery room in good condition. INDICATIONS FOR PROCEDURE: This is a woman, who has been followed in my office for care. Her care was complicated by preeclampsia and severe lower extremity swelling, which was a lifelong problem for her. She had been seen in the office, was diagnosed with preeclampsia, and her cervix was not favorable for induction at all. After discussing the various modes of delivery, we decided to proceed with a primary . She also has had this lymphedema the entire , and we have sent her to several lymphedema clinics for assistance with that. PROCEDURE IN DETAIL: Under an adequate level of anesthesia, she was prepped and draped for abdominal surgery. A Pfannenstiel incision was made and carried down to the fascia. The fascia was taken off the rectus muscle by blunt and sharp dissection. The rectus muscles were spread bluntly and the peritoneum was entered under direct vision without difficulty. The incision was extended with care to avoid the urinary bladder. A bladder blade was placed and a bladder flap created in the usual fashion. The uterine incision was made in a transverse manner along the lower uterine segment which was not well-developed. It was taken down in the midline until the intrauterine cavity was entered. A large amount of clear fluid was noted. The vertex was grasped with a suction cup and delivered. The hypopharynx and nasopharynx were suctioned and the remainder of the delivered without difficulty. The cord was doubly clamped and cut and the infant handed to the resuscitation team present. The placenta was then delivered manually. The uterus was delivered from the abdomen. The uterus was curettaged twice with a wet lap and irrigated with a large amount of fluid. The uterine incision was then repaired with 0 Vicryl in a running locking fashion, with the second layer imbricating the first. Hemostasis was excellent. Attention was turned towards the tubes and they were ligated with a 0 plain gut suture. The cul-de-sac and gutters were cleaned of blood and debris. The uterus was delivered back into the abdomen. The rectus muscles were reapproximated with 0 Vicryl in interrupted fashion. The fascia was repaired from lateral to midline with 0 Vicryl and the subcu was repaired with 3-0 Vicryl. The skin was repaired with a 4-0 Vicryl in a subcuticular manner. The wound was sterilely dressed. She tolerated the procedure well and went to the recovery room in satisfactory condition. R. Travis Vital MD RJV/sidney , 07:45 AM , 07:52 AM MACIE
== END 2018-07-09 12:37 | disposition home or self-care (01) ==
LOC: H2E 09:32 → H1EA 15:37
PROVIDERS: ADMIT Obstetrics & Gynecology; ATTEND Obstetrics & Gynecology